=== PATIENT | female | born 1960 | race Caucasian/White ===

== ENCOUNTER 2016-04-03 11:51 | Emergency (ER) | payer OTHER ==
[~2016-04-03 11:51] MED LIST: AMITRIPTYLINE25 M1 PO; BACLOFEN10 M1 PO; BUSPIRONE HYDRO10 MG PO; CLONAZEPAM0.5 MG PO; ESTRACE 1MG1 MG/TAB PO; FETZIMA80 MG PO; FLEXERIL 1010 MG/TAB PO; LEVOTHYROXINE PO; LYRICA75 MG PO; NORCO 325 MG-51 TA1 PO; REMERON SOL15 MG/TAB PO; SYNTHROID0.075 MG/T
[2016-04-03] MEDS ORDERED: AUGMENTIN 875-1 EAC1 PO (13:41)
[2016-04-03] MEDS ORDERED: ZOFRAN ODT8 M1 PO (13:41)
[2016-04-03] MEDS ORDERED: ULTRAM 50MG TAB50 MG PO (13:41)
== END 2016-04-03 14:06 | disposition home or self-care (01) ==
LOC: ED 11:51
DX: J01.90 Acute sinusitis, unspecified (principal); J40 Bronchitis, not specified as acute or chronic; R11.0 Nausea; R52 Pain, unspecified; M79.7 Fibromyalgia; F17.210 Nicotine dependence, cigarettes, uncomplicated